=== PATIENT | female | born 1950 | race African-American/Black ===

== ENCOUNTER → 2018-05-11 | Outpatient (CLI) | payer OTHER | LOC: ULTRA 08:47 | DX: R10.2 Pelvic and perineal pain (principal); M85.89 Other specified disorders of bone density and structure, multiple sites; Z90.710 Acquired absence of both cervix and uterus; Z78.0 Asymptomatic menopausal state ==

== ENCOUNTER → 2018-07-27 | Outpatient (CLI) | payer OTHER | LOC: RAD 09:07 | DX: Z12.31 Encounter for screening mammogram for malignant neoplasm of breast (principal) ==

== ENCOUNTER → 2019-03-07 | Outpatient (CLI) | payer OTHER | LOC: ULTRA 08:01 | DX: R10.11 Right upper quadrant pain (principal); R10.2 Pelvic and perineal pain; Z91.040 Latex allergy status ==

== ENCOUNTER → 2019-09-01 | Outpatient (CLI) | payer OTHER | LOC: CAT 09:16 | DX: Z13.6 Encounter for screening for cardiovascular disorders (principal); I25.10 Atherosclerotic heart disease of native coronary artery without angina pectoris; E78.00 Pure hypercholesterolemia, unspecified ==

== ENCOUNTER → 2019-10-10 | Outpatient (CLI) | payer OTHER | LOC: BC 08:35 | PROVIDERS: ATTEND Family Medicine | DX: Z12.31 Encounter for screening mammogram for malignant neoplasm of breast (principal) ==

== ENCOUNTER 2020-09-27 17:02 | Inpatient (IN) | payer OTHER ==
[~2020-09-27] VITALS: Ht 170.2 cm; Wt 89.4 kg
[2020-09-27 17:20] VITALS: BP 180/87
[2020-09-27 17:59] LABS: HEMATOCRIT 35.3 % (37.0-47.0); HEMOGLOBIN 11.7 gm/dL (12.0-15.0); MCH 30.9 pg (26.0-34.0); MCHC 33.3 g/dL (28.0-37.0); RBC 3.79 mil/uL (4.20-5.00); RDW 13.2 % (10.5-14.5); WBC 6.9 thou/uL (4.0-11.0)
[2020-09-27 18:11] LABS: CALCIUM 9.6 mg/dL (8.5-10.1); CREATININE 0.9 mg/dL (0.6-1.0); POTASSIUM 3.7 mmol/L (3.5-5.1)
[2020-09-27 18:18] LABS: ALBUMIN 3.9 g/dL (3.4-5.0); TOTAL BILIRUBIN 0.5 mg/dL (0.2-1.0); TOTAL PROTEIN 7.4 g/dL (6.4-8.2)
[2020-09-27 23:13] VITALS: BP 145/61
[2020-09-27 23:27] VITALS: BP 145/61
[2020-09-28 00:22] VITALS: BP 152/46
[2020-09-28 05:12] LABS: URINE BILIRUBIN NEGATIVE (Negative); URINE BLOOD NEGATIVE (Negative); URINE CLARITY CLEAR; URINE COLOR YELLOW; URINE GLUCOSE-RANDOM* NEGATIVE (Negative); URINE KETONES NEGATIVE (Negative); URINE LEUKOCYTES-REFLEX NEGATIVE (Negative); URINE NITRITE-REFLEX NEGATIVE (Negative); URINE PROTEIN (DIPSTICK) NEGATIVE (Negative); URINE SPECIFIC GRAVITY 1.015 (1.005-1.035); URINE UROBILINOGEN 0.2 E.U./dl (0.2-1.0)
--- NOTE | 2020-09-28 05:25 | NUR ---
NEW PATIENT FOR VERTIGO. PATIENT AOX4 MAKES NEEDS KNOWN. PATIENT CALM AND COOPERATIVE WITH CARE AND MEDS.PATIENT DONT TAKE MEDS AT HOME.PATIENT HAD EMESIS X1 THIS SHIFT. PATIENT WAS ABLE TO USE BEDSIDE COMMODE WITH X2 ASSIST, UA COLLECTED AND SENT TO THE LAB. FALL PRECAUTION IN PLACE. PATIENT DENIED PAIN OR DISCOMFORT. PATIENT IN BED ASLEEP AT THIS TIME BREATHING REGULAR AND UNLABOURED.
[2020-09-28 07:45] VITALS: BP 139/61
--- NOTE | 2020-09-28 09:51 | EKG ---
[address] [place] [address] [facility] [place] [address] ELECTROCARDIOGRAM REPORT Name: LINDACHEL MORENO Room #: 457-P ADM IN M.R.#: [id number] Admission: 09/27/20 Attend Phys: Bruno Garnica Discharge: Date of : 54 Report #: [id number] [facility] ED Test Date: 2020-09-27 Test Time: 17:23:29 Pat Name: CHEL MCKEON Department: Room: [facility] Gender: F It Associate: : 1950 Requested By: Stefania Rodriguez Order Number: [id number] MD: Asif Conner Measurements Intervals [place] Rate: 74 P: 77 AL: 186 QRS: 3 QRSD: 94 T: -12 QT: 393 QTc: 436 Interpretive Statements Sinus rhythm Probable left atrial enlargement Left ventricular hypertrophy Borderline T abnormalities, diffuse leads No previous ECG available for comparison Electronically Signed On 09-28-2020 9:50:46 CDT by Asif Conner [email or web address] <ELECTRONICALLY SIGNED> By: Asif Conner MD, [facility] 09/28/20 0950 1723 1723 Asif Conner MD, FACC /EPI
--- NOTE | 2020-09-28 16:17 | NUR ---
Assumed pt care at 7am.Pt in and out of bed with sba.Assessment completed.vss. at bs visiting.Dr Davidson here,order noted.Pt tolerated meds and diet. No c/o dizziness at present. One dose of prn meclizine given per order. Will continue to monitor.
[2020-09-28 16:21] VITALS: BP 128/57
[2020-09-28 19:27] VITALS: BP 144/49
--- NOTE | 2020-09-28 23:08 | NUR ---
PT ALERT AND ORIENTED X4. VSS . NO C/O VERTIGO PRESENTLY. NO S/S DISTRESS. NO C/O PAIN. ENCOURAGED PT TO CALL NS BEFORE GETTING OOB FOR FALL PRECAUTIONS. WILOL CONTINUE TO MONITOR PT FOR CHANGES.
--- NOTE | 2020-09-29 01:02 | NUR ---
PT RESTIG QUIETLY. NO S/S DISTRESS.
[2020-09-29 04:53] VITALS: BP 1401/61
--- NOTE | 2020-09-29 04:59 | NUR ---
PT PROGRESSING TOWARDS D/C GOALS, VSS AFEBRILE THIS AM. DENIED VERTIGO. PRESENTLY SHE IS RESTING QUIETLY. NO S/S DISTRESS. APPEARED TO HAVE SLEPT MOST OF NIGHT. NO C/O.
[2020-09-29 07:20] VITALS: BP 144/60
[2020-09-29] MEDS ORDERED: MECLIZINE HCL25 MG PO (14:07)
[2020-09-29 14:22] VITALS: BP 144/60
--- NOTE | 2020-09-29 14:43 | NUR ---
Assumed pt care at 7am.P t up adlib in the room and to bathroom as needed. Assessment completed.vss.Pt excited about dc home today after seen by doctor. Pt tolerated meds and med.Dr Davidson rounded on pt later this am,Dc order noted. Dc summary compile and reviewed with pt. Saline lock dc'd.No c/o dizziness.Pt will be dc home by 1500.
== END 2020-09-29 15:20 | disposition home or self-care (01) | DRG 103 ==
LOC: ER 17:02 → EROBS 23:06 → 4W 23:30
PROVIDERS: Nurse Practitioner Family; ADMIT Hospitalist; ATTEND Hospitalist
DX: G43.909 Migraine, unspecified, not intractable, without status migrainosus (principal); Z90.49 Acquired absence of other specified parts of digestive tract; Z90.710 Acquired absence of both cervix and uterus
CPT/HCPCS: 10045

== ENCOUNTER → 2020-10-10 | Outpatient (CLI) | payer OTHER ==
[~2020-10-10] MED LIST: MECLIZINE HCL25 MG PO
== END ==
LOC: BC 09:49
PROVIDERS: ATTEND Family Medicine
DX: Z12.31 Encounter for screening mammogram for malignant neoplasm of breast (principal)